=== PATIENT | male | born 1990 | race Asian ===

== ENCOUNTER 2023-01-15 12:33 | Outpatient (CLI) | payer OTHER, SELFPAY ==
--- NOTE | 2023-01-15 17:49 | WPDPFTINT ---
PFT Procedure Performed PFT Procedure Performed Spirometry with Pre/Post Bronchodilator Plethysmography (Lung Vol) Diffusing Cap (DLCO) Flow Vol Loop PFT Interpretation This is a pulmonary function test with pre and post-bronchodilator spirometry, plethysmography and diffusing capacity. The test was performed and results interpreted in accordance with the 2019 and 2005 ATS/ERS Task Force guidelines respectively using the Global Lung Function Initiative-2012 reference equations. Patient demonstrated good effort and cooperation. Reproducibility criteria were met. The quality of the pre bronchodilator spirometry maneuver was Grade A and post bronchodilator spirometry maneuver was Grade A. Findings: Spirometry: The contour the inspiratory and expiratory flow tracing are normal. The pre bronchodilator FVC is 5.56 L, 107% predicted. The pre bronchodilator FEV1 is 4.45 L, 104% predicted. The pre bronchodilator FEV1: FVC ratio was 80%. The post bronchodilator FVC is 5.49 L, representing 1% decrease. The post bronchodilator FEV1 is 4.48 L, representing 1% increase. The post bronchodilator FEV1: FVC ratio was 82%. Plethysmography: The total lung capacity is 6.95 L, 104% predicted. The FRC is 3.77 L, 115% predicted. The residual volume is 1.39 L, 85% predicted. Diffusing capacity: The diffusing capacity unadjusted for hemoglobin and carboxyhemoglobin is 31.0, 91% predicted. The diffusing capacity adjusted for alveolar volume is 5.12, 100% predicted. Impression: The spirometry is normal without evidence of an obstructive abnormality. There is no significant improvement after inhaling a single dose of albuterol. The lung volumes are normal. The diffusing capacity is normal. There are no prior studies for comparison
== END 2023-01-15 12:34 | disposition home or self-care (01) ==
LOC: ANHPFT 12:36
PROVIDERS: Visit Provider Nurse Practitioner
DX: R05.3 Chronic cough (principal)
CPT/HCPCS: 94060; 94726; 94729

== ENCOUNTER 2023-02-18 12:35 | Outpatient (CLI) | payer OTHER, SELFPAY ==
--- NOTE | 2023-02-18 16:50 | WPDMETH ---
Methacholine Procedure Perform Procedure Performed Methacholine Challenge Methacholine Challenge Methacholine Challenge: DOS: 02/18/2023 REQUESTING: NANY Faith REASON FOR TESTING: Chronic cough METHACHOLINE CHALLENGE This test was conducted per ATS guidelines. A previous study on showed normal spirometry. The patient was exposed to sequentially increasing doses of methacholine in the usual manner. Level 0 - saline Level 1 - 1.81 mcg Level 2 - 7.26 mcg Level 3 - 29.0 mcg Level 4 - 116.10 mcg Level 5 - 464.4 mcg The test was stopped after the final dose without a decrease of 20% in the FEV1. The largest decrease in FEV1 was 2% decrease in the highest dose. A 20% drop in the FEV1 is a positive result. Flows returned to normal after bronchodilator was administered. IMPRESSION: This is a negative methacholine challenge without a significant decrease in the FEV1 of FVC. The best use for a methacholine challenge is to rule out asthma. Clinical correlation is advised. Luciana Helms MD
== END 2023-02-18 12:36 | disposition home or self-care (01) ==
LOC: ANHPFT 12:36
PROVIDERS: Visit Provider Nurse Practitioner
DX: R05.3 Chronic cough (principal)
CPT/HCPCS: 94070; J7674